=== PATIENT | female | born 1980 | race Hispanic/Latino ===

== ENCOUNTER 2016-07-31 22:06 | Emergency (ER) | payer OTHER ==
[2016-07-31 22:20] VITALS: BMI 19.5
[2016-07-31 22:23] VITALS: RESP 16; O2SAT 98
[2016-07-31] MEDS ORDERED: Lactated Ringer's 1,000 ML IV STA (22:52)
[2016-07-31] MEDS ORDERED: Dextrose 5%/Lactated Ringer's 1,000 ML IV SCH (23:00)
--- NOTE | 2016-07-31 23:13 | ED PDOC ---
HPI:Nausea, Vomiting, Diarrhea Time Seen by Provider: 07/31/16 22:29 Chief Complaint (Nursing): GI Problem Chief Complaint (Provider): vomiting, diarrhea History Per: Patient History/Exam Limitations: no limitations Onset/Duration Of Symptoms: Days (1) Current Symptoms Are (Timing): Still Present Have you had recent travel within the past 21 days to any of the following countries: [place], [place], [place] or [place]?: No Additional Complaint(s): 36yo female who is currently 16 weeks with no PMHx presents to the ED with complaints of intractable vomiting x 1 day (over 10 episodes) with associated watery, non-bloody diarrhea. Patient states in the last hour she has been able to start tolerating sips of water but feels very weak and dehydrated with chills. No known sick contacts or recent travel. Patient reports she ate salmon last night which may have caused symptoms today. Denies abdominal pain, fever, vaginal bleeding/discharge, pelvic pain. PCP: Dr. Amado Abnormal Vaginal Bleeding: No Past Medical History Reviewed: Historical Data, Nursing Documentation, Vital Signs Vital Signs: Last Vital Signs Temp 98.3 F 07/31/16 22:21 Pulse 73 07/31/16 22:21 Resp 16 07/31/16 22:21 BP 118/78 07/31/16 22:21 Pulse Ox 98 07/31/16 22:21 - Medical History PMH: No Chronic Diseases - Surgical History Surgical History: No Surg Hx - Family History Family History: States: No Known Family Hx - Social History Current smoker - smoking cessation education provided: No Alcohol: None Drugs: Denies - Home Medications Home Medications: Ambulatory Orders Medication Instructions Recorded Ondansetron ODT [Zofran ODT] 4 mg PO Q6 PRN #16 odt 02/13/16 Ondansetron ODT [Zofran ODT] 1 odt PO Q6 PRN #15 odt 07/31/16 - Allergies Allergies/Adverse Reactions: Allergies Allergy/AdvReac Type Severity Reaction Status Date / Time No Known Allergies Allergy Verified 07/31/16 22:20 Review of Systems ROS Statement: Except As Marked, All Systems Reviewed And Found Negative Constitutional: Positive for: Chills, Weakness, Other (dehydration, no known sick contacts or recent travel ). Negative for: Fever Gastrointestinal: Positive for: Vomiting, Diarrhea. Negative for: Abdominal Pain Genitourinary Female: Negative for: Vaginal Discharge, Vaginal Bleeding, Pelvic Pain Physical Exam - Reviewed Nursing Documentation Reviewed: Yes Vital Signs Reviewed: Yes - Physical Exam Appears: Positive for: Non-toxic, No Acute Distress (tired appearing ) Head Exam: Positive for: ATRAUMATIC, NORMAL INSPECTION, NORMOCEPHALIC Skin: Positive for: Normal Color, Warm, Dry Eye Exam: Positive for: Normal appearance, EOMI, PERRL ENT: Positive for: Pharynx Is (clear ), Other (tacky mucous membranes ). Negative for: Pharyngeal Erythema, Tonsillar Exudate, Tonsillar Swelling Neck: Positive for: Normal, Painless ROM, Supple Cardiovascular/Chest: Positive for: Regular Rate, Rhythm. Negative for: Murmur , Tachycardia Respiratory: Positive for: Normal Breath Sounds. Negative for: Wheezing, Respiratory Distress Gastrointestinal/Abdominal: Positive for: Soft, Other (gravid less than 20 weeks ). Negative for: Tenderness, Mass, Distended, Guarding, Rebound Back: Positive for: Normal Inspection. Negative for: L CVA Tenderness, R CVA Tenderness Extremity: Positive for: Normal ROM. Negative for: Deformity, Swelling Neurologic/Psych: Positive for: Alert, Oriented - Laboratory Results Result Diagrams: 07/31/16 23:10 07/31/16 23:10 - ECG O2 Sat by Pulse Oximetry: 98 Pulse Ox Interpretation: Normal (RA) Medical Decision Making Medical Decision Makin: Impression: vomiting and diarrhea DDx: gastroenteritis vs. dehydration vs. electrolyte abnormality Plan: Labs Dextrose 5%/Lactated Ringer's 1,000ml IV 100mls/hr, Lactated Ringer's 1,000ml IV 1,000mls/hr, Zofran 8mg IV accucheck reassess Scribe Attestation: Documented by Courtney Casas acting as a scribe for Ioana Garza MD. Provider Scribe Attestation: All medical record entries made by the Scribe were at my direction and personally dictated by me. I have reviewed the chart and agree that the record accurately reflects my personal performance of the history, physical exam, medical decision making, and the department course for this patient. I have also personally directed, reviewed, and agree with the discharge instructions and disposition. Disposition - Clinical Impression Clinical Impression: Vomiting and diarrhea - Disposition Referrals: Leilani Amado MD [Medical Doctor] - 08/01/16 Disposition Time: 00:00 Condition: IMPROVED Prescriptions: Ondansetron ODT [Zofran ODT] 1 odt PO Q6 PRN #15 odt PRN Reason: Nausea/Vomiting Instructions: Gastroenteritis (ED) Forms: [facility] ED School/Work Excuse Patient Signed Over To: Qasim Castrejon Handoff Comments: Pending reassessment and final ER disposition
[2016-07-31 23:21] LABS: BASO % 0.2 % (0.0-2.0); EOS % 0.1 % (0.0-4.0); HEMATOCRIT 41.8 % (34.0-47.0); LYMPH # 0.8 K/uL (1.0-4.3); LYMPH % 6.7 % (20.0-40.0); MEAN CELL VOLUME 86.8 fl (81.0-99.0); MEAN CORPUSCULAR HEMOGLOBIN 29.1 pg (27.0-31.0); MEAN CORPUSCULAR HGB CONC 33.5 g/dL (33.0-37.0); MEAN PLATELET VOLUME 7.7 fl (7.2-11.7); MONO # 0.4 K/uL (0.0-0.8); MONO % 3.9 % (0.0-10.0); NEUT # 10.1 K/uL (1.8-7.0); NEUT % 89.1 % (50.0-75.0); PLATELET COUNT 166 K/uL (130-400); RED CELL DISTRIBUTION WIDTH 14.3 % (11.5-14.5); WHITE BLOOD COUNT 11.4 K/uL (4.8-10.8)
[2016-07-31 23:25] LABS: RBC URINE 3 /hpf (0-3); URINE BACTERIA RARE (<OCC); URINE BILIRUBIN NEGATIVE (NEGATIVE); URINE BLOOD NEGATIVE (NEGATIVE); URINE COLOR YELLOW (YELLOW); URINE GLUCOSE (UA) NEG (Normal); URINE KETONE 80 mg/dL (NEGATIVE); URINE LEUKOCYTE ESTERASE NEG Leu/uL (Negative); URINE PROTEIN 30 mg/dL (NEGATIVE); URINE UROBILINOGEN 0.2-1.0 mg/dL (0.2-1.0); WBC URINE 1 /hpf (0-5)
[2016-07-31 23:35] LABS: ALB/GLOB RATIO 1.5 (1.0-2.1); ALKALINE PHOSPHATASE 42 U/L (38-126); ALT/SGPT 23 U/L (9-52); AST/SGOT 20 U/L (14-36); BILIRUBIN,TOTAL 0.7 mg/dl (0.2-1.3); BLOOD UREA NITROGEN 8 mg/dl (7-17); CALCIUM 8.6 mg/dL (8.4-10.2); CARBON DIOXIDE 25 mmol/L (22-30); CHLORIDE 98 mmol/L (98-107); GFR AFRICAN-AMERICAN > 60; GLUCOSE,RANDOM 98 mg/dL (65-105); MAGNESIUM 1.8 MG/DL (1.6-2.3); PHOSPHOROUS 3.4 mg/dl (2.5-4.5); POTASSIUM 3.5 MMOL/L (3.6-5.0); SODIUM 132 mmol/l (132-148); TOTAL PROTEIN 7.1 G/DL (6.3-8.2)
[2016-07-31 23:46] LABS: NEUTROPHIL 85 % (42-75); TOTAL CELLS COUNTED 100
--- NOTE | 2016-08-01 04:33 | ED PDOC ---
- Laboratory Results Result Diagrams: 07/31/16 23:10 07/31/16 23:10 - ECG O2 Sat by Pulse Oximetry: 98 Medical Decision Making Medical Decision MakinAM: PT. signed out to me by Dr. Garza. Feeling much better, tolerating PO. Thinks she ate something "bad." Will d/c home. Told patient to f/u w/ OCCUPATIONAL THERAPIST AIDE in 2-3 days or return to ED for worsening or concerning symptoms. Disposition - Clinical Impression Clinical Impression: Vomiting and diarrhea - POA Present On Arrival: None - Disposition Referrals: Leilani Amado MD [Medical Doctor] - 08/01/16 Disposition: Routine/Home Disposition Time: 01:00 Condition: IMPROVED Prescriptions: Ondansetron ODT [Zofran ODT] 1 odt PO Q6 PRN #15 odt PRN Reason: Nausea/Vomiting Instructions: Gastroenteritis (ED) Forms: [facility] ED School/Work Excuse
[2016-08-01 04:35] VITALS: BP 110/70; PULSE 82; TEMP 98.4
== END 2016-08-01 01:10 | disposition home or self-care (01) ==
LOC: H.ER 22:06
DX: R11.10 Vomiting, unspecified (principal); R19.7 Diarrhea, unspecified; K52.9 Noninfective gastroenteritis and colitis, unspecified; Z33.1 Pregnant state, incidental